=== PATIENT | female | born 1990 | race African-American/Black ===

== ENCOUNTER 2018-08-28 06:59 | Emergency (ER) | payer OTHER ==
[2018-08-28 07:14] VITALS: BP 100/50; PULSE 58; TEMP 98.3; BMI 25.0
[2018-08-28] MEDS ORDERED: SODIUM CHLORIDE 1,000 ML IV STA (07:14)
--- NOTE | 2018-08-28 07:27 | PDOC ---
History of Present Illness - General Chief Complaint: Vaginal Bleeding Stated Complaint: VAGINAL BLEEDING Time Seen by Provider: 08/28/18 07:26 History Source: Patient Exam Limitations: No Limitations - History of Present Illness Initial Comments: Pt is a 28 yo F, with no significant PMH, who is presenting with painless vaginal bleeding since 6 am this AM when she woke up. Pt states she went to use the bathroom when she noted dark red blood saturating her panty liner (no clots or passage of tissue). Pt is , 1 living son, 1 therapeutic after UTI/pyelonephritis. Pt was also told she has cervical incompetence, and was offered pitocin and cerclage in the past, which she refused. Pt took a home test ~1 week ago, and she believes her LMP was "sometime in June " but is unsure because she has had a lot of light spotting throughout June. She had no menstrual period in July. Pt has had mild dependent pedal edema and nausea, but no vomiting and has been able to tolerate PO food and fluids. Pt denies any fevers/chills, headache, vision changes, chest pain, palpitations, SOB, abdominal pain, urinary symptoms, diarrhea/constipation, or leg swelling/pain. Allergies: Sulfa (hives) PCP: none (will set up with [facility]) sound truck operator: Dr. Mccann (last appointment in June) Pt denies any cigarette, alcohol, or drug use. Pt denies any recent travel or sick contacts. 08/28/18 07:45 08/28/18 08:52 Past History - Travel Traveled outside of the country in the last 30 days: No Close contact w/someone who was outside of country & ill: No - Past Medical History Allergies/Adverse Reactions: Allergies Allergy/AdvReac Type Severity Reaction Status Date / Time Sulfa (Sulfonamide Allergy Verified 08/28/18 07:11 Antibiotics) Home Medications: Ambulatory Orders Cephalexin [Keflex] 500 mg PO BID 5 Days #10 capsule 08/28/18 COPD: No DVT: No Diabetes: No HTN: No - Surgical History Abdominal Surgery: No - Suicide/Smoking/Psychosocial Hx Smoking History: Never smoked Review of Systems - Review of Systems Able to Perform ROS?: Yes Is the patient limited Malawian proficient: No Constitutional: Yes: Weight Stable. No: Chills, Diaphoresis, Fever, Loss of Appetite, Weakness HEENTM: No: Blurred Vision, Recent change in vision, Double Vision, Throat Pain , Difficulty Swallowing Respiratory: No: Cough, Orthopnea, Shortness of Breath Cardiac (ROS): Yes: Edema (mild dependent LE edema b/l after standing at work). No: Chest Pain, Irregular Heart Rate, Lightheadedness, Palpitations, Syncope, Chest Tightness ABD/GI: Yes: Nausea ("normal nausea" in the mornings). No: Abdominal Distended, Blood Streaked Bowels, Constipated, Diarrhea, Poor Appetite, Poor Fluid Intake, Rectal Bleeding, Vomiting, Abdominal cramping : Yes: Other (Vaginal bleeding, as stated in HPI). No: Burning, Dysuria, Discharge, Frequency, Flank Pain, Hematuria, Pain, Urgency Musculoskeletal: No: Back Pain, Joint Pain, Muscle Pain Integumentary: No: Bruising, Rash Neurological: No: Headache, Numbness, Seizure, Weakness, Unsteady Gait, Ataxia, Dizziness Psychiatric: No: Sleep Pattern Change, Change in Appetite Endocrine: No: Increased Urine, Change in Weight Hematologic/Lymphatic: No: Anemia, Blood Clots, Easy Bleeding, Easy Bruising All Other Systems: Reviewed and Negative *Physical Exam - Vital Signs Last Vital Signs Temp Pulse Resp BP Pulse Ox 98.3 F 58 L 16 100/50 L 98 08/28/18 07:11 08/28/18 07:11 08/28/18 07:11 08/28/18 07:11 08/28/18 07:11 - Physical Exam General Appearance: Yes: Nourished, Appropriately Dressed. No: Apparent Distress (Pt sitting comfortably, vitals stable, in NAD) HEENT: positive: EOMI, CHRISTIAN, Normal ENT Inspection, Normal Voice, Symmetrical, Pharynx Normal, Hearing Grossly Normal. negative: Scleral Icterus (R), Scleral Icterus (L), Pharyngeal Erythema, Tonsillar Exudate, Tonsillar Erythema, Nasal Congestion, Rhinorrhea Neck: positive: Trachea midline, Normal Thyroid, Supple. negative: Tender, Rigid, Lymphadenopathy (R), Lymphadenopathy (L), Rigidity Respiratory/Chest: positive: Lungs Clear, Normal Breath Sounds. negative: Chest Tender, Respiratory Distress, Accessory Muscle Use, Crackles, Wheezing Cardiovascular: positive: Regular Rhythm, Regular Rate, S1, S2. negative: Edema , JVD, Murmur Vascular Pulses: Dorsalis-Pedis (R): 4+, Doralis-Pedis (L): 4+ Female Pelvic Exam: positive: normal external exam, cervical os closed (could insert fingertip only, soft, no CMT; appears closed, mild vaginal bleeding), normal adnexa, normal size ovaries, vaginal bleeding (mild vaginal bleeding in the vault, no passage of clots). negative: CMT, discharge, adnexal tenderness Gastrointestinal/Abdominal: positive: Normal Bowel Sounds, Flat, Soft. negative : Tender, Organomegaly, Pulsatile Mass, Distended, Guarding, Rebound Rectal Exam: positive: deferred Lymphatic: negative: Adenopathy, Tenderness Musculoskeletal: positive: Normal Inspection. negative: CVA Tenderness Extremity: positive: Normal Capillary Refill, Normal Inspection, Normal Range of Motion, Pelvis Stable. negative: Tender, Pedal Edema (no edema appreciated) , Calf Tenderness, Erythema Integumentary: positive: Normal Color, Dry, Warm. negative: Jaundice, Clammy, Diaphoresis, Rash, Ecchymosis Neurologic: positive: ham clerk II-XII NML intact, Fully Oriented, Alert, Normal Mood/ Affect, Normal Response, Motor Strength / ED Treatment Course - LABORATORY CBC & Chemistry Diagram: 08/28/18 07:38 08/28/18 07:38 Medical Decision Making - Medical Decision Making Pt was seen at bedside, also will be seen by attending Dr. Santiago. Pt presenting with painless vaginal bleeding since 6 am this AM when she woke up. Pt states she went to use the bathroom when she noted dark red blood saturating her panty liner (no clots or passage of tissue). Pt is , 1 living son, 1 therapeutic after UTI/pyelonephritis. Pt was also told she has cervical incompetence, and was offered pitocin and cerclage in the past, which she refused. Pt has had mild dependent pedal edema and nausea, but no vomiting and has been able to tolerate PO food and fluids. Pt denies any fevers/chills, headache, vision changes, chest pain, palpitations, SOB, abdominal pain, urinary symptoms, diarrhea/constipation, or leg swelling/pain. PE showed pt sitting comfortably, borderline hypotension (100/50, HR 58 - pt unsure of baseline), in NAD. Considering normal versus threatened vs ectopic . Ordered work-up including CBC, CMP, type and screen, PT/INR, UA. Provided 1L NS for improvement of borderline hypotension. Will continue to reassess pt and monitor for symptomatic improvement. 08/28/18 07:45 Labs being drawn by nursing staff, pt receiving IVF. 08/28/18 07:46 CBC WNL, INR 1.12 UA showed 3+ blood, no leuk esterase, WBC 1, rare bacteria. Will send antibiotic course to pt pharmacy (Keflex - pt no longer ). Bedside US showed pole within the uterus, HR 133, ~7 weeks. Pt being sent to transvaginal US. 08/28/18 08:50 CMP WNL, beta-hcg 61,559. 08/28/18 09:04 Blood type AB positive 08/28/18 09:25 Pt taken for US. 08/28/18 09:37 [id number] US/TRANSVAGINAL US PREG Transvaginal obstetrical ultrasound Clinical information: vaginal bleeding, history of cervical incompetence, approximately 7 - 9 weeks as per patient The exam demonstrates a single viable intrauterine gestation at approximately 6 weeks 5 days. Embryonic cardiac rate 136 BPM. No subchorionic implantation bleed is seen. A small to moderate amount of free fluid is noted within the cul-de-sac. A 4 cm unilocular right ovarian cyst is noted. Correlate with follow-up sonography. The left ovary appears unremarkable. No Doppler evidence of ovarian torsion, sensitivity 70%. Impression: . As noted above. 08/28/18 10:[address] Mccann's office to see if he would be available to see pt in clinic on Thursday. 08/28/18 10:23 Dr. Mccann does not follow obstetrics, he is a citrus picker only. Pt states she will find an OB doctor in [facility]. Considering intrauterine , pt can be discharged to home with follow- up. Pt advised to follow-up with PCP in 1-2 days and has been referred to Dr. Triana in case she wants to see an OB doctor. Strict return precautions provided with pt understanding. 08/28/18 10:33 *DC/Admit/Observation/Transfer Diagnosis at time of Disposition: Vaginal bleeding affecting early - Discharge Dispostion Disposition: HOME Condition at time of disposition: Good Decision to Admit order: No - Prescriptions Prescriptions: Cephalexin [Keflex] 500 mg PO BID 5 Days #10 capsule - Referrals Referrals: [facility] [place] [facility] [place] [Provider Group] Wilson Mccann DO [Staff Physician] - - Patient Instructions Printed Discharge Instructions: DI for Vaginal Bleeding During Additional Instructions: You were seen in the ER today for vaginal bleeding. I have provided you with your labs and imaging results to take to your next OB-COMPUTING SYSTEMS MECHANIC appointment. Please follow-up with your primary care doctor and OB-COMPUTING SYSTEMS MECHANIC within 1-2 days to discuss your visit and make sure your symptoms have improved. Please return to the ER if you have any worsening pain, worsening bleeding, development of fevers or chills, loss of consciousness, inability to tolerate food or fluids, or any other concerns. Please avoid any heavy lifting or straining. - Post Discharge Activity Forms/Work/School Notes: Back to Work
[2018-08-28 08:04] LABS: BASO % 0.5 % (0-2.0); EOS % 0.6 % (0-4.5); HEMATOCRIT 36.6 % (32.4-45.2); HEMOGLOBIN 12.5 GM/dL (10.7-15.3); LYMPH % 40.7 % (8-40); MCH 27.8 pg (25.7-33.7); MCHC 34.2 g/dl (32.0-36.0); MEAN CELL VOLUME 81.3 fl (80-96); MEAN PLT VOLUME 9.8 fl (7.5-11.1); MONO % 7.1 % (3.8-10.2); NEUT % 51.1 % (42.8-82.8); PLATELET COUNT 170 K/MM3 (134-434); RBC 4.51 M/mm3 (3.60-5.2); RDW 13.8 % (11.6-15.6); WHITE BLOOD COUNT 5.3 K/mm3 (4.0-10.0)
[2018-08-28 08:12] LABS: URINE APPEARANCE CLEAR; URINE BILIRUBIN NEGATIVE (<2.0 mg/dL); URINE COLOR YELLOW; URINE GLUCOSE (UA) NEGATIVE (NEGATIVE); URINE KETONE 2+ (NEGATIVE); URINE LEUK ESTERASE NEGATIVE (NEGATIVE); URINE NITRITE NEGATIVE (NEGATIVE); URINE PROTEIN 1+ (NEGATIVE)
--- NOTE | 2018-08-28 08:24 | PDOC ---
Attending Attestation - Resident Resident Name: Candis Young - ED Attending Attestation I have performed the following: I have examined & evaluated the patient, The case was reviewed & discussed with the resident, I agree w/resident's findings & plan - HPI HPI: 08/28/18 08:59 Valerie 28 YOF presenting with VB today. Unclear LMP 06/2018, spotting throughout, irregular. Last week positive test. - Physicial Exam PE: 08/28/18 08:59 NAD, well appearing, PERRL, EOMI, MMM, nl conjunctiva, anicteric; neck supple. lungs clear, RRR, abdomen soft nontender. Pelvic exam performed with resident as documented, +Blood in cervical os and vaginal vault, no cmt, soft cervix, fingertip at the external os. HUNTER x4, No peripheral edema. normal color for ethnicity, WWP. - Medical Decision Making 08/28/18 09:03 Valerie 28 YOF presenting with VB today. Unclear LMP 06/2018, spotting throughout, irregular course. Last week positive test. DDx female: ectopic , threatened , demise, subchorionic hematoma, UTI/bacteria in in . Fibroid uterus, vaginitis, infection, electrolyte/metabolic derangements. Vital signs reviewed, wnl. Prior notes reviewed, including admissions, discharges and consultations. laboratory results and imaging reviewed, basic labs and lytes wnl, notable for beta hcg >61,599, correlating with TAB US UA_with some blood and ketones, given hydration, rare bacteria, epis present so some level of contamination, will treat for bacteruria of with keflex course x 1 week. rh positive, no rhogam indicated ED course: no acute events, remained stable and well appearing. Clinically improved after interventions, including IVF and analgesia. abdomen soft, NTND, nonperitoneal Bedside TAB performed for VB, ; Live IUP with YS and FP visualized, FHR at 132-138bpm, estimated gestational age ~6.3 weeks vs 7 weeks based on axis and measurements. not ectopic TVUS confirms , viable IUP with right 4cm ovarian cyst, that appears like CL cyst related to her current . no e/o torsion, small-mod free pelvic ff, but no e/o ectopic with findings so needs to be followed up, ob referrals given (Dr. Mccann, community relations representative, made aware as well) Dispo: Pt to be discharged in stable condition. Patient and family made aware of impression and plan, return precautions discussed (including but not limited to worsening pain or symptoms), fevers, or signs of infection, vaginal bleeding/ syncope, chest pain, respiratory distress, inability to tolerate oral intake, dehydration, syncope, or neurologic changes). Follow up with PMD and/or specialist as recommended, follow up information provided, take medications as instructed for duration of time. continue with supportive care, avoid triggers and precipitants. All questions answered to patient's satisfaction and expressed understanding and comfort with this. dx threatened , UTI/bacteria of 08/28/18 10:45
[2018-08-28 08:25] LABS: EPI CELLS FEW /HPF (FEW); URINE BACTERIA RARE /hpf (NONE SEEN); URINE MUCUS MODERATE
[2018-08-28 08:45] LABS: INR 1.12 (0.83-1.09); PROTHROMBIN TIME (PATIENT) 13.2 SEC (9.7-13.0)
[2018-08-28 08:54] LABS: ALBUMIN 4.1 g/dl (3.4-5.0); ALK PHOS 44 U/L (45-117); ANION GAP 10 MMOL/L (8-16); BILIRUBIN,TOTAL 0.8 mg/dL (0.2-1); BLOOD UREA NITROGEN 5 mg/dL (7-18); CALCIUM 8.7 mg/dL (8.5-10.1); CHLORIDE 105 mmol/L (98-107); CO2 21 mmol/L (21-32); CREATININE 0.5 mg/dL (0.55-1.3); GLUCOSE,RANDOM 72 mg/dL (74-106); POTASSIUM 4.3 mmol/L (3.5-5.1); SGOT/AST 15 U/L (15-37); SGPT/ALT 21 U/L (13-61); SODIUM 136 mmol/L (136-145); TOT PROT 7.3 g/dl (6.4-8.2)
== END 2018-08-28 10:50 | disposition home or self-care (01) ==
LOC: JER 06:59
PROC: 3E0337Z Introduction of Electrolytic and Water Balance Substance into Peripheral Vein, Percutaneous Approach (ICD-10-PCS; principal; 2018-08-28)
DX: O26.891 Other specified pregnancy related conditions, first trimester (principal); O20.8 Other hemorrhage in early pregnancy; O34.81 Maternal care for other abnormalities of pelvic organs, first trimester; N83.291 Other ovarian cyst, right side; Z3A.01 Less than 8 weeks gestation of pregnancy
CPT/HCPCS: 36415; 76817-TC; 80053; 81003; 81015; 84702; 85025; 85610; 86850; 86900; 86901; 99283-25; J7030